=== PATIENT | female | born 1945 | race Caucasian/White ===

== ENCOUNTER 2018-06-24 13:15 | Outpatient (CLI) | payer OTHER ==
--- NOTE | 2018-06-24 13:56 | BD ---
DEXA SCAN: DATE: 06/24/2018. PROVIDED CLINICAL HISTORY: Postmenopausal screening. FINDINGS: Lumbar Spine: BMD (g/cm2) L1 0.833 T-Score: -1.4 L2 0.931 T-Score: -0.9 L3 1.012 T-Score: -0.7 L4 1.076 T-Score: 0.1 L1-L4 0.963 T-Score: -0.8 Femoral Neck: 0.578 T-Score: -2.4 Total Femur: 0.728 T-Score: -1.8 TEN-YEAR FRACTURE RISK: Major osteoporotic fracture: 22%. Hip fracture: 7.6%. Impression: Calculated bone mineral density meets WHO criteria for osteopenia involving the left femoral neck and places the patient at increased risk for fracture. POS: OFF
== END 2018-06-24 13:16 | disposition home or self-care (01) ==
LOC: BICMAMMO 13:15
PROVIDERS: ATTEND Family Medicine
DX: Z13.820 Encounter for screening for osteoporosis (principal); M81.0 Age-related osteoporosis without current pathological fracture; M85.852 Other specified disorders of bone density and structure, left thigh
CPT/HCPCS: 77080